=== PATIENT | male | born 1995 | race Two or more races ===

== ENCOUNTER 2018-02-23 22:21 | Emergency (ER) | payer SELFPAY ==
[~2018-02-23] VITALS: Ht 180.3 cm; Wt 104.3 kg
[2018-02-23 22:37] VITALS: BP 158/93
== END 2018-02-24 01:40 | disposition home or self-care (01) ==
LOC: ER 22:21
DX: H61.23 Impacted cerumen, bilateral (principal)
CPT/HCPCS: 69209

== ENCOUNTER 2020-02-27 11:18 | Emergency (ER) | payer SELFPAY ==
[~2020-02-27] VITALS: Ht 180.3 cm; Wt 117.9 kg
[2020-02-27 14:58] VITALS: BP 169/99
[2020-02-27] MEDS ORDERED: cefTRIAXone SOD 1,000 MG VL IM ONE (15:45)
== END 2020-02-27 15:48 | disposition home or self-care (01) ==
LOC: ER 11:18
DX: J22 Unspecified acute lower respiratory infection (principal)
CPT/HCPCS: 71046; 96372; 99283; J0696

== ENCOUNTER 2021-02-22 00:34 | Emergency (ER) | payer SELFPAY ==
[~2021-02-22] VITALS: Ht 180.3 cm; Wt 108.9 kg
[2021-02-22 03:59] VITALS: BP 139/89
[2021-02-22] MEDS ORDERED: KETOROLAC TROMETH 60MG/2ML VIAL IM ONE (04:00)
[2021-02-22] MEDS ORDERED: cefTRIAXone SOD 1,000 MG VL IM ONE (04:00)
== END 2021-02-22 05:43 | disposition home or self-care (01) ==
LOC: ER 00:38
DX: L03.032 Cellulitis of left toe (principal)
CPT/HCPCS: 10060

== ENCOUNTER 2021-09-06 12:49 | Emergency (ER) | payer MEDICAID, OTHER ==
[~2021-09-06] VITALS: Ht 180.3 cm; Wt 108.9 kg
[2021-09-06 13:10] VITALS: BP 136/93
[2021-09-06] MEDS ORDERED: IBUP800T27 PO (14:19)
[2021-09-06] MEDS ORDERED: CYCL-837 PO (14:19)
== END 2021-09-06 14:28 | disposition home or self-care (01) ==
LOC: ER 12:49
DX: S23.41XA Sprain of ribs, initial encounter (principal); X50.1XXA Overexertion from prolonged static or awkward postures, initial encounter; Y93.89 Activity, other specified; Y92.89 Other specified places as the place of occurrence of the external cause; Y99.8 Other external cause status
CPT/HCPCS: 71101